=== PATIENT | male | born 1985 | race Caucasian/White ===

== ENCOUNTER 2024-06-18 15:36 | Emergency (ER) | payer OTHER ==
[~2024-06-18] VITALS: Ht 180.3 cm; Wt 78.0 kg
[2024-06-18] MEDS ORDERED: haloperidol lactate 5mg/ml inj IM PRN (16:10)
[2024-06-18] MEDS ORDERED: LORazepam 1 MG tablet PO PRN (16:10)
[2024-06-18 17:07] LABS: BASOPHILS # (AUTO) 0.1 X10'3 (0-0.2); BASOPHILS % (AUTO) 0.4 % (0-1); EOSINOPHILS % (AUTO) 0 % (0-6); HEMATOCRIT 45.4 % (42.0-52.0); HEMOGLOBIN 15.1 g/dl (14.0-17.9); LYMPHOCYTES # (AUTO) 2.2 X10'3 (1.1-4.8); LYMPHOCYTES % (AUTO) 16.9 % (21-51); MEAN CORPUSCULAR HEMOGLOBIN 29.4 PG (27.0-31.0); MEAN CORPUSCULAR HGB CONC 33.4 g/dL (33.0-36.5); MEAN CORPUSCULAR VOLUME 88.1 FL (78-98); MONOCYTES # (AUTO) 0.5 X10'3 (0-0.9); MONOCYTES % (AUTO) 3.6 % (2-12); NEUTROPHILS # (AUTO) 10.3 X10'3 (1.8-7.7); NEUTROPHILS % (AUTO) 79.1 % (42-75); PLATELET COUNT 153 X10'3 (140-440); RED BLOOD COUNT 5.15 X10'6 (4.70-6.10); RED CELL DISTRIBUTION WIDTH 13.3 % (11.5-14.5)
[2024-06-18 17:18] LABS: ALANINE AMINOTRANSFERASE 174 U/L (12-78); ALBUMIN 3.4 G/DL (3.4-5.0); ALBUMIN/GLOBULIN RATIO 0.9 (1.1-1.5); ALKALINE PHOSPHATASE 110 IU/L (46-116); ANION GAP 15 (8-16); ASPARTATE AMINO TRANSFERASE 247 U/L (10-37); BILIRUBIN,TOTAL 0.8 MG/DL (0.1-1.0); BLOOD UREA NITROGEN 19 MG/DL (7-18); BUN/CREATININE RATIO 17.3 (10.0-20.0); CALCIUM 7.8 MG/DL (8.5-10.1); CHLORIDE 101 MMOL/L (99-107); GLUCOSE 101 MG/DL (70-104); LIPASE 43 U/L (16-77); POTASSIUM 4.5 MMOL/L (3.5-5.1); SODIUM 142 MMOL/L (135-145); TOTAL CARBON DIOXIDE 26.4 MMOL/L (24-32); TOTAL PROTEIN 7.2 G/DL (6.4-8.2); eCRCL 95 ML/MIN; eGFR 74 ML/MIN
[2024-06-18] MEDS: LORazepam 2 mg/ml vial IV PRN (17:40)
[2024-06-18] MEDS: magnesium sulf-water 2g/50mL 50 ML IV ONE (17:40)
[2024-06-18] MEDS: folic acid 1mg/0.2ml inj IV ONE (17:57)
[2024-06-18 17:58] LABS: ETHANOL 374 MG/DL (<10)
[2024-06-18] MEDS: thiamine 100mg/ml 2ml inj. IV SCH (19:35)
[2024-06-18] MEDS ORDERED: phenobarbital inj 260 MG in normal saline 100ml IV soln 98 ML IV SCH (20:00)
[2024-06-18] MEDS: LORazepam 2 mg/ml vial IV ONE (23:40)
[2024-06-19] MEDS: LORazepam 2 mg/ml vial IM ONE (04:06)
[2024-06-19] MEDS: thiamine 100mg/ml 2ml inj. IV SCH (08:00)
[2024-06-19] MEDS ORDERED: CHLO25CA10 PO (08:28)
[2024-06-19 08:36] VITALS: BP 149/107; PULSE 101; RESP 16; TEMP 98; O2SAT 96
== END 2024-06-19 08:38 | disposition home or self-care (01) ==
LOC: ER 15:37
DX: S00.81XA Abrasion of other part of head, initial encounter (principal); F10.129 Alcohol abuse with intoxication, unspecified; Y90.9 Presence of alcohol in blood, level not specified; W19.XXXA Unspecified fall, initial encounter; Y93.89 Activity, other specified; Y92.89 Other specified places as the place of occurrence of the external cause; Y99.8 Other external cause status
CPT/HCPCS: 36415; 80053; 80320; 82140; 83690; 83735; 85025; 96365; 96366; 96372; 96375; 96376; 99285; J2060; J3411; J3490; J7030